=== PATIENT | female | born 1970 | race Two or more races ===

== ENCOUNTER → 2017-08-22 | Emergency (ER) | payer OTHER ==
[~2017-08-22] VITALS: Ht 157.5 cm; Wt 86.2 kg
[~2017-08-22] MED LIST: CIPRO500 MG PO; INTESTINEX680 M1 PO; KETO10TA2 PO; URIN D.S. TABLE1 TAB PO
== END | disposition home or self-care (01) ==
LOC: ER 10:02
DX: K29.70 Gastritis, unspecified, without bleeding (principal)

== ENCOUNTER 2024-07-09 12:24 | Emergency (ER) | payer OTHER ==
[~2024-07-09] VITALS: Ht 152.4 cm; Wt 86.2 kg
[2024-07-09] MEDS ORDERED: SULFASALAZINE500 MG PO (12:41)
[2024-07-09] MEDS ORDERED: BUTALB/ACETAMINOPHEN/CAFFEINE 1 TAB TABLET PO ONE ×2 (13:30→14:05)
[2024-07-09] MEDS ORDERED: ENALAPRILAT DIHYDRATE 2.5 MG/2 ML VIAL IV ONE (13:45)
[2024-07-09 14:04] LABS: HEMOGLOBIN 13.1 g/dL (12.0-15.00); MEAN CORPUSCULAR HEMOGLOBIN 25.9 pg (27.00-32.0); MEAN CORPUSCULAR HGB CONC 32.7 g/dl (32.0-36.0); PLATELET COUNT 398 K/uL (150-450); RED BLOOD COUNT 5.06 M/uL (4.00-6.00); RED CELL DISTRIBUTION WIDTH 17.8 % (11.5-14.5)
[2024-07-09] MEDS ORDERED: ENALAPRILAT DIHYDRATE 1.25 MG/ML VIAL IV ONE ×2 (14:06→14:15)
[2024-07-09 14:21] LABS: URINE APPEARANCE Clear; URINE BILIRRUBIN Negative (NEGATIVE); URINE BLOOD Negative; URINE COLOR Yellow; URINE GLUCOSE Negative (NEGATIVE); URINE KETONE Negative (NEGATIVE); URINE LEUKOCYTE Negative; URINE NITRATE Negative; URINE PROTEIN Negative (NEGATIVE); URINE UROBILINOGEN 0.2 E.U./dl
[2024-07-09 14:22] LABS: URINE BACTERIA 625.4 uL (0.0-1933); URINE EPITHELIAL CELLS 28.7 uL (0.0-38.8); URINE RBC 2.7 uL (0.0-20.8)
[2024-07-09 14:45] LABS: ALBUMIN 3.6 gm/dL (3.4-5.0); BILIRUBIN TOTAL 0.34 mg/dL (0.3-1.2); CALCIUM 8.5 mg/dL (8.5-10.1); CREATININE SERUM 0.64 mg/dL (0.55-1.02); GFR 97.44; GLOBULINA 3.6 G/DL (2.4-3.5); POTASSIUM 4.01 mEq/L (3.5-5.1); TOTAL PROTEIN 7.2 gm/dL (6.4-8.2)
[2024-07-09 14:47] LABS: INR 1.05; PARTIAL THROMBOPLASTIN TIME 29.4 SECONDS (22.0-34.0); PROTHROMBIN TIME 11.4 SECONDS (9.0-11.5)
[2024-07-09] MEDS ORDERED: KETO10TA2 PO (19:59)
[2024-07-09] MEDS ORDERED: KETOROLAC TROMETHAMINE 60 MG VIAL IM ONE ×2 (20:00→20:18)
[2024-07-09] MEDS ORDERED: NIFEDIPINE 10 MG CAPSULE PO ONE (20:00)
== END 2024-07-09 21:09 | disposition home or self-care (01) ==
LOC: ER 12:24
PROVIDERS: Emergency Medicine
DX: R07.89 Other chest pain (principal); R42 Dizziness and giddiness; Z91.041 Radiographic dye allergy status; Z20.822 Contact with and (suspected) exposure to COVID-19